=== PATIENT | female | born 1985 | race American Indian/Alaskan Native ===

== ENCOUNTER 2016-11-29 09:58 | Emergency (ER) | payer OTHER ==
[2016-11-29] MEDS ORDERED: TYLENOL PO ONE (12:11)
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
[2016-11-29 15:45] VITALS: BP 119/78
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
== END 2016-11-29 15:43 | disposition home or self-care (01) ==
LOC: ED 09:58
DX: M54.2 Cervicalgia (principal); M62.838 Other muscle spasm; V49.49XA Driver injured in collision with other motor vehicles in traffic accident, initial encounter; Y93.89 Activity, other specified; Y92.89 Other specified places as the place of occurrence of the external cause; Y99.8 Other external cause status
CPT/HCPCS: 70450; 72125